=== PATIENT | female | born 1975 | race Two or more races ===

== ENCOUNTER 2018-05-27 18:57 | Emergency (ER) | payer SELFPAY ==
[~2018-05-27] VITALS: Ht 152.4 cm; Wt 59.0 kg
--- NOTE | 2018-05-27 19:05 | NUR ---
REPORT GIVEN BY DAYSHIFT NURSE
--- NOTE | 2018-05-27 19:25 | NUR ---
MD DIAZ AT BEDSIDE FOR MSE.
--- NOTE | 2018-05-27 19:28 | NUR ---
[facility] OFFICERS LEAVES BEDSIDE
[2018-05-27] MEDS ORDERED: CHARCOAL/SORBITOL SOLUTION 50 GM/240 ML BOTTLE PO ONE (19:30)
[2018-05-27] MEDS ORDERED: IV NORMAL SALINE 1000 ML BAG IV ONE (19:30)
[2018-05-27] MEDS ORDERED: ONDANSETRON 4 MG/2 ML VIAL IV ONE (19:30)
[2018-05-27 19:43] LABS: BASOPHILS # (AUTO) 0.1 K/uL (0.0-8.0); BASOPHILS % (AUTO) 0.4 % (0.0-2.0); HEMATOCRIT 41.7 % (31.2-41.9); HEMOGLOBIN 14.1 g/dL (10.9-14.3); LYMPHOCYTES # (AUTO) 1.1 K/uL (20.0-40.0); LYMPHOCYTES % (AUTO) 7.5 % (20.5-51.5); MEAN CORPUSCULAR HEMOGLOBIN 29.8 uug (24.7-32.8); MEAN CORPUSCULAR HGB CONC 34 g/dL (32.3-35.6); MEAN CORPUSCULAR VOLUME 88.2 fL (75.5-95.3); MONOCYTES # (AUTO) 0.4 K/uL (2.0-10.0); MONOCYTES % (AUTO) 2.8 % (0.0-11.0); NEUTROPHILS # (AUTO) 12.7 K/uL (1.8-8.9); NEUTROPHILS % (AUTO) 89.3 % (38.5-71.5); PLATELET COUNT (AUTO) 394 K/uL (179-408); RED BLOOD CELL COUNT(AUTO) 4.72 MIL/uL (3.63-4.92); WHITE BLOOD COUNT (AUTO) 14.2 K/uL (3.8-11.8)
[2018-05-27] MEDS ORDERED: ONDANSETRON 4 MG/2 ML VIAL ONE (19:54)
[2018-05-27 19:55] LABS: CARBON DIOXIDE 21 mmol/L (21-32); CHLORIDE 105 mmol/L (98-107); CREATININE 0.7 mg/dL (0.6-1.3); GLUCOSE 111 mg/dL (74-106); POTASSIUM 3.7 mmol/L (3.5-5.1); UREA NITROGEN, BLOOD 9 mg/dL (7-18)
[2018-05-27] MEDS ORDERED: CHARCOAL/SORBITOL SOLUTION 50 GM/240 ML BOTTLE ONE (19:59)
[2018-05-27 20:00] LABS: ALANINE AMINOTRANSFERASE 28 U/L (14-59); ALKALINE PHOSPHATASE 87 U/L (50-136); ASPARTATE AMINOTRANSFERASE 22 U/L (15-37); BILIRUBIN,DIRECT 0.1 mg/dL (0.0-0.2); BILIRUBIN,TOTAL 0.4 mg/dL (0.2-1.0); TOTAL PROTEIN, SERUM 7.7 g/dL (6.4-8.2)
[2018-05-27 20:01] LABS: ACETAMINOPHEN < 2.0 ug/mL (10-30)
--- NOTE | 2018-05-27 20:05 | NUR ---
[facility] SITTER ARRIVES TO BEDSIDE
[2018-05-27 20:16] LABS: ETHANOL < 3 MG/DL (0-0)
[2018-05-27 20:26] LABS: THYROID STIMULATING HORMONE 1.166 mIU/mL (0.358-3.740)
[2018-05-27 20:51] LABS: *BILIRUBIN,URIN NEGATIVE (NEGATIVE); *BLOOD, URINE Trace-lysed (NEGATIVE); *COLOR,URINE YELLOW (YELLOW); *KETONES,URINE 2+ (NEGATIVE); *PROTEIN,URINE NEGATIVE (NEGATIVE); *UROBILINOGEN,URINE 0.2 E.U./dl (NORMAL); LEUKOCYTE ESTERASE ,URINE NEGATIVE (NEGATIVE); NITRITE, URINE NEGATIVE (NEGATIVE); PH,URINE 5.5 (5.0-8.0); UGLUCOSE NEGATIVE (NEGATIVE)
[2018-05-27 20:57] LABS: *AMPHETAMINE, URINE NEGATIVE (NEGATIVE); *BARBITURATE, URINE NEGATIVE (NEGATIVE)
[2018-05-27 21:14] LABS: *CLARITY,URINE SLIGHTLY HAZY (CLEAR)
[2018-05-27 21:15] LABS: MUCUS,URINE MANY /LPF (0-FEW); SQUAMOUS EPITHELIAL CELL,UR FEW /HPF (NONE SEEN); WBC,URINE 0-3 /HPF (0-3)
[2018-05-27 21:19] LABS: *CANNABINOID, URINE NEGATIVE (NEGATIVE); *COCCAINE, URINE NEGATIVE (NEGATIVE); *OPIATE, URINE NEGATIVE (NEGATIVE); *PHENCYCLIDINE SCREEN,URINE NEGATIVE (NEGATIVE)
--- NOTE | 2018-05-27 21:23 | NUR ---
[facility] CALLED FOR CRISIS EVAL.
--- NOTE | 2018-05-27 23:55 | NUR ---
[employer] AT BEDSIDE FOR PSYCH EVAL
--- NOTE | 2018-05-28 01:00 | NUR ---
Patient discharged to home in stable conditon. Patient reported being pain free prior to discharge. Written and verbal after care instructions given. Patient verbalizes understanding of instructions. Patient's peripheral IV was removed. Patient able to ambulate unassisted with a steady gait. Patient left with all personal belongings.
[2018-05-28 01:11] VITALS: BP 126/84
== END 2018-05-28 01:00 | disposition home or self-care (01) ==
LOC: ER 18:58
DX: T65.91XA Toxic effect of unspecified substance, accidental (unintentional), initial encounter (principal); F32.9 Major depressive disorder, single episode, unspecified
CPT/HCPCS: 36415; 80307; 84443; 84703; 85025; 93005; A4663; G0480; G0480-TC; J2405; J7030